=== PATIENT | male | born 1950 | race Caucasian/White ===

== ENCOUNTER 2017-07-21 16:04 | Day surgery (SDC) | payer MEDICARE ==
[~2017-07-21] VITALS: Ht 182.9 cm; Wt 69.1 kg
[~2017-07-21 16:04] MED LIST: ARNICA MONTANA SL; ESTER-C 500 MG1 TAB PO; EXCEDRIN EXTRA1 TAB PO; GLUCOSAMINE & C1 CAP PO; HYDROCODONE-APA1 TAB PO; IBUPROFEN200 MG PO; LOCOID TP; MULTIPLE VITAMI1 TA1 PO; PREVACID30 MG PO; ULTIMATE FLORA PO; VITAMIN D3 PO; VITAMIN E400 UNI2 PO; [UNRECOGNIZED DRUG - OTHER] PO
[2017-07-21 17:55] VITALS: BP 95/72; BMI 20.6
[2017-07-21 18:00] LABS: ANION GAP 13.6 mmol/L (8-16); CARBON DIOXIDE 28.3 mmol/L (21.0-32.0); CREATININE - SERUM 1.2 mg/dL (0.6-1.3); POTASSIUM - SERUM 3.9 mmol/L (3.5-5.1)
[2017-07-21 18:55] LABS: BASOPHILS 0.1 % (0-2); EOSINOPHILS 0.5 % (0-7); HEMATOCRIT 37.9 % (42.0-54.0); HEMOGLOBIN 12.7 g/dL (13.5-17.5); IMMATURE GRANULOCYTES 0.2 % (0-5); LYMPHOCYTES 9.7 % (15-50); MCH 32.4 pg (26.0-34.0); MCHC 33.5 g/dL (31.0-37.0); MCV 96.7 fL (80.0-100.0); MEAN PLATELET VOLUME 10.8 fL (7.4-10.4); MONOCYTES 6.8 % (2-11); NEUTROPHILS 82.7 % (40-80); PLATELET COUNT 217 10x3/uL (130-400); RBC 3.92 10x6/uL (4.20-6.10); RDW 12.9 % (11.5-14.5); WBC 12.8 10x3/uL (4.8-10.8)
[2017-07-21 19:01] LABS: INR 1.11 (0.85-1.17); PROTIME 13.9 SECONDS (11.6-15.0)
[2017-07-21 20:24] VITALS: BP 103/65
[2017-07-21 23:43] VITALS: BP 103/65; Ht 182.9 cm; Wt 69.1 kg
[2017-07-22 04:00] VITALS: BP 103/57
[2017-07-22 05:58] LABS: ALKALINE PHOSPHATASE 84 U/L (46-116); ALT (SGPT) 12 U/L (10-68); BILIRUBIN - TOTAL 0.78 mg/dL (0.2-1.3); CALC OSMOLALITY 287 mosm/kg (275-300); CALCIUM 8.1 mg/dL (8.5-10.1); CARBON DIOXIDE 27.1 mmol/L (21.0-32.0); CHLORIDE - SERUM 105 mmol/L (98-107); GLUCOSE 73 mg/dL (74-106); POTASSIUM - SERUM 3.9 mmol/L (3.5-5.1); PROTEIN - SERUM 6.2 g/dL (6.4-8.2); SODIUM 143 mmol/L (136-145); UREA NITROGEN 24 mg/dL (7-18); eGFR NON AFRICAN AMERICAN 79 mL/min (90-120)
[2017-07-22 09:33] VITALS: BP 100/62
== END 2017-07-22 11:22 | disposition home or self-care (01) ==
LOC: OBSVTIME → D.OPS 16:04 → D.MS 17:38 → OBSVTIME 17:38 → D.OPS 17:38 → D.MS 07-22 11:22
PROVIDERS: Anesthesiology; Internal Medicine Gastroenterology
DX: K22.2 Esophageal obstruction (principal); R13.10 Dysphagia, unspecified; T18.108A Unspecified foreign body in esophagus causing other injury, initial encounter; X58.XXXA Exposure to other specified factors, initial encounter; K26.9 Duodenal ulcer, unspecified as acute or chronic, without hemorrhage or perforation; K29.70 Gastritis, unspecified, without bleeding; K20.9 Esophagitis, unspecified; G81.94 Hemiplegia, unspecified affecting left nondominant side

== ENCOUNTER → 2020-08-15 12:47 | Outpatient (CLI) | payer MEDICARE ==
[2017-07-21 23:43] VITALS: BMI 20.6
== END | disposition home or self-care (01) ==
LOC: D.RAD 12:47
PROVIDERS: ATTEND Family Medicine
DX: R13.10 Dysphagia, unspecified (principal)